=== PATIENT | female | born 1980 | race Caucasian/White ===

== ENCOUNTER 2020-10-17 16:15 | Outpatient (CLI) | payer OTHER, SELFPAY ==
--- NOTE | ~2020-10-17 | MM_ITS ---
EXAMINATION: MM screening dany BI w zion HISTORY: Screening TECHNIQUE: Craniocaudal and mediolateral oblique 3-D tomosynthesis images were obtained and synthetic 2-D images were generated. CAD analysis was submitted and interpreted. COMPARISON: No prior mammogram is available for comparison at this institution. BREAST PARENCHYMAL COMPOSITION: The breasts are extremely dense, which lowers the sensitivity of mamm ography. FINDINGS: There are bilateral asymmetries in the upper outer quadrant of the breasts. No suspicious a rchitectural distortion or calcifications. IMPRESSION: 1. Bilateral breast asymmetries. 2. Additional mammographic views and possible breast ultrasound are recommended. BI-RADS Category 0: Incomplete: Needs additional imaging evaluation. Reviewed, dictated and finalized at location A. RING MACHINE OPERATOR IMPRESSION: 1. Bilateral breast asymmetries. 2. Additional mammographic views and possible breast ultrasound are recommended . BI-RADS Category 0: Incomplete: Needs additional imaging evaluation.
== END 2020-10-17 16:16 | disposition home or self-care (01) ==
LOC: ANHIMG 16:19
PROVIDERS: PCP Family Medicine; Visit Provider Physician Assistant
DX: Z12.31 Encounter for screening mammogram for malignant neoplasm of breast (principal); R92.8 Other abnormal and inconclusive findings on diagnostic imaging of breast
CPT/HCPCS: 77063; 77067

== ENCOUNTER 2020-11-19 13:50 | Outpatient (CLI) | payer OTHER, SELFPAY ==
--- NOTE | ~2020-11-19 | MMUS_ITS ---
EXAMINATION: MM diagnostic mammo BI, US breast BI complete HISTORY: Follow-up breast asymmetries TECHNIQUE: Additional 3-D tomosynthesis images of the breasts were performed and synthetic 2-D images were generated. CAD analysis was submitted and interpreted. High resolution bilateral breast ultraso und was performed. COMPARISON: 10/17/2020 BREAST PARENCHYMAL COMPOSITION: The breasts are heterogenously dense, which may obscure small masses. FINDINGS: MAMMOGRAPHIC FINDINGS: There is no mammographic evidence for malignancy in the right breast. There is a 5.4 cm mass in the u pper outer quadrant of the left breast which is obscured by dense fibroglandular tissue. There are no suspicious calcifications or architectural distortion. Right breast ultrasound: Multiple cysts in both breasts. In the subareolar location of the right kathleen st there is a slightly lobulated hypoechoic oval mass without internal vascularity measuring 1.5 cm g reatest dimension. Left breast ultrasound: In the left breast there is a large subareolar cyst measuring 4.9 cm greatest dimension, likely corre sponding to the mammographic finding. At 9:00, 3 cm from the nipple, there is an oval hypoechoic mass measuring 6 mm without significant internal vascularity or posterior features. IMPRESSION: 1. Probable benign bilateral breast masses. 2. Follow-up six-month interval bilateral breast ultrasound recommended. BI-RADS category 3, probably benign findings. Reviewed, dictated and finalized at location A. OR STOCK PLAN ADMINISTRATOR IMPRESSION: 1. Probable benign bilateral breast masses. 2. Follow-up six-month interval bilateral breast ultrasound recommended. BI-RADS category 3, probably benign findings.
== END 2020-11-19 13:51 | disposition home or self-care (01) ==
PROVIDERS: PCP Family Medicine; Visit Provider Physician Assistant
DX: N63.21 Unspecified lump in the left breast, upper outer quadrant (principal); N60.02 Solitary cyst of left breast; N60.01 Solitary cyst of right breast
CPT/HCPCS: 76641; 77066

== ENCOUNTER 2021-02-23 18:57 | Emergency (ER) | payer OTHER, SELFPAY ==
--- NOTE | ~2021-02-23 | CT_ITS ---
EXAMINATION: CT abdomen pelvis w con DATE: 02/23/2021 21:05 INDICATION: Right-sided abdominal pain TECHNIQUE: Computed tomography (CT) of the abdomen and pelvis was performed with 100 cc Omnipaque 350 . intravenous contrast. Automated exposure control and iterative reconstruction technique were employ ed. Exam dose: 293.32 mGy-cm total exam DLP. COMPARISON: None. FINDINGS: Lung bases are clear of infiltrate or consolidation. Normal heart size. No pericardial or p leural effusion. Very small sliding hiatal hernia. There are 4 large faceted gallstones measuring up to approximately 2 cm maximal dimension. No gallbla dder wall thickening or pericholecystic fluid or fat stranding. No bile duct or pancreatic duct dilat ation. Approximately 1.5 cm hepatic dome cyst. The liver is otherwise unremarkable. Normal splenic size. No pancreatic mass lesion or calcification. Normal morphology of the adrenal glands. No renal mass lesion. No urinary tract calculus or hydroureteronephrosis. Normal caliber of the abdominal aorta. No intraperitoneal or retroperitoneal or pelvic mass lesion or adenopathy or ascites. Status post hysterectomy. The urinary bladder is evacuated. Normal appendix. No bowel obstruction, bowel wall thickening, pneumatosis or intraperitoneal free air . Included skeletal structures are unremarkable. IMPRESSION: Cholelithiasis 1.5 cm hepatic cyst Normal appendix Reviewed, dictated and finalized at Location A. Reviewed, dictated and finalized at location A.
[2021-02-23 19:11] VITALS: PULSE 65; RESP 18; TEMP 36.4; O2SAT 100
[2021-02-23] MEDS: ONDANSETRON INJ 4 MG/2 ML VIAL IV PUSH (19:43)
[2021-02-23] MEDS: SODIUM CHLORIDE 0.9% IV 1,000 ML 999 ML IV CONT (19:43)
[2021-02-23] MEDS: MORPHINE SULFATE (*CRX) 4 MG/ML INJ IV PUSH (19:43)
[2021-02-23 20:00] LABS: Basophils Percent Auto 0.5 % (0.2-1.2); Eosinophils Absolute Auto 0.3 K/mm3 (0-0.3); Eosinophils Percent Auto 3.8 % (0-4.4); Hematocrit 41.3 % (37.0-47.0); Hemoglobin 13.6 g/dL (12.0-15.0); Immature Granulocyte Absolute 0.01 K/mm3 (0.00-0.031); Immature Granulocyte Percent A 0.2 % (0-0.5); Lymphocytes Absolute Auto 2.06 K/mm3 (0.9-3.2); Lymphocytes Percent Auto 31.2 % (18.3-44.2); Mean Corpuscular HGB Conc 32.9 g/dl (32-36); Mean Corpuscular Hemoglobin 29.8 pg (26-34); Mean Corpuscular Volume 90.4 fl (80-100); Mean Platelet Volume 9.9 fl (7.4-10.4); Monocytes Absolute Auto 0.5 K/mm3 (0.1-0.6); Monocytes Percent Auto 7.7 % (2.6-8.5); Neutrophils Absolute Auto 3.8 K/mm3 (1.3-6.7); Neutrophils Percent Auto 56.6 % (45.5-73.1); Platelet Count Result 214 k/mm3 (150-375); Red Blood Count 4.57 M/mm3 (4.2-5.4); Red Cell Distribution Width 12.6 % (11.5-14.5); White Blood Count 6.6 K/mm3 (4.5-10.0)
[2021-02-23 20:17] LABS: Alanine Aminotransferase 13 U/L (4-35); Albumin Level 4.1 g/dL (3.5-5.1); Alkaline Phosphatase 70 U/L (38-126); Anion Gap 5 mmol/L (8-16); Aspartate Amino Transferase 23 U/L (14-36); Bilirubin,Total 0.1 mg/dL (0.2-1.3); Blood Urea Nitrogen 13 mg/dL (7-17); Calcium 9.8 mg/dL (8.4-10.2); Carbon Dioxide 26 mmol/L (22-30); Chloride 107 mmol/L (98-107); Estimated CRCL calculation 67 ml/min; Estimated Glomerular Filt Rate > 60; Glucose 93 mg/dL (65-105); Lipase 59 U/L (23-300); Sodium 138 mmol/L (137-145)
[2021-02-23 21:20] LABS: Add Urine Microscopic? YES; Appearance Urine Clear (Clear); Bilirubin Urine Negative (Negative); Blood Urine Negative (Negative); Color Urine Straw (Yellow); Glucose Urine UA Negative (Negative); Ketones Urine Trace mg/dL (Negative); Leukocyte Esterase Ur Negative LEU/UL (Negative); Mucus Urine Rare /lpf; Nitrate Urine Negative (Negative); Protein Urine Negative (Negative); RBC Urine 0-2 /hpf (0-2); Squamous Epithelial Cell Urine Few /hpf (Few); Urobilinogen Urine Negative mg/dL (<2.0); WBC Urine 0-3 /hpf
--- NOTE | 2021-02-23 21:54 | ED.GENADULT ---
HPI - General Adult General Chief complaint: Abdominal Pain Stated complaint: abd pain Time Seen by Provider: 02/23/21 19:21 History of Present Illness HPI narrative: Patient is a 41-year-old female who presents the emergency department with chief complaint of right-sided abdominal pain. Patient reports that she has been having pain in the right side of her abdomen. The patient states that she did some heavy exercise and is noticed that around the umbilicus in the right lower quadrant she has been having pain. The patient states is worse with movement reports that there are certain times that it is just aching and other times it becomes a sharp stabbing pain. Patient states that the pain does localize more to the suprapubic and right lower quadrant. Patient reports that is not improved by anything. Related Data Allergies Allergy/AdvReac Type Severity Reaction Status Date / Time doxycycline Allergy Unknown Unknown Verified 11/12/20 10:08 Sulfa (Sulfonamide Allergy Unknown Skin Verified 11/12/20 10:08 Antibiotics) Reaction Review of Systems Review of Systems: Narrative: A 10 system review of systems was completed on the patient and is negative except for what is stated in the HPI. Nursing and ancillary documentation was reviewed. [facility] Family History Family History Father Diabetes mellitus Family history of cardiovascular disease Grandparent Hypertension Other Cerebrovascular accident Social History Social History Smoking status: Never smoker Alcohol intake: current Drinks per week: 5 Gender identity (if verbalized by the patient): Female Exam Narrative: Exam Narrative: GENERAL: Well-appearing, well-nourished, and in no acute distress. HEAD: Normocephalic, atraumatic. EYES: PERRLA and EOMI. ENT: Nares clear, no rhinorrhea or epistaxis. Mucous membranes moist. NECK: Supple. CHEST: Clear to auscultation. No respiratory distress. HEART: Regular rate and rhythm. No murmur heard. Normal peripheral pulses. ABDOMEN: Soft, tender to palpation in the suprapubic and right lower quadrant region., nondistended, normal active bowel sounds. EXTREMITIES: Normal range of motion. No edema. SKIN: Warm, dry, no rash. NEURO: No focal deficits. Alert and oriented x3. PSYCH: Normal mood and affect. Course Course Emergency Course: CT scan showed evidence of cholelithiasis without evidence of cholecystitis. Laboratory studies showed no evidence of elevation of the liver enzymes. Patient has a normal white blood cell count Vital Signs Vital signs: Vital Signs Temperature 36.4 C 02/23/21 19:11 Pulse Rate 65 02/23/21 19:11 Respiratory Rate 18 02/23/21 19:11 Pulse Oximetry 100 02/23/21 19:11 Temperature 36.4 C 02/23/21 19:11 Pulse Rate 65 02/23/21 19:11 Respiratory Rate 18 02/23/21 19:11 Pulse Oximetry 100 02/23/21 19:11 Medical Decision Making Vital Signs Vital Signs: Vital Signs Temperature 36.4 C 02/23/21 19:11 Pulse Rate 65 02/23/21 19:11 Respiratory Rate 18 02/23/21 19:11 Pulse Oximetry 100 02/23/21 19:11 Temperature 36.4 C 02/23/21 19:11 Pulse Rate 65 02/23/21 19:11 Respiratory Rate 18 02/23/21 19:11 Pulse Oximetry 100 02/23/21 19:11 Lab Data Result diagrams: 02/23/21 19:54 02/23/21 19:54 Labs: Lab Results 02/23/21 02/23/21 02/23/21 Range/Units 19:54 19:54 21:10 WBC 6.6 (4.5-10.0) K/mm3 RBC 4.57 (4.2-5.4) M/mm3 Hgb 13.6 (12.0-15.0) g/dL Hct 41.3 (37.0-47.0) % MCV 90.4 (80-100) fl MCH 29.8 (26-34) pg MCHC 32.9 (32-36) g/dl RDW 12.6 (11.5-14.5) % Plt Count 214 (150-375) k/mm3 MPV 9.9 (7.4-10.4) fl Immature Gran % (Auto) 0.2 (0-0.5) % Neut % (Auto) 56.6 (45.5-73.1) % Lymph % (Auto) 31.2 (18.3-44.2) % [place] % (Au
[2021-02-23 22:50] VITALS: BP 121/73; PULSE 74; RESP 16; TEMP 36.7; O2SAT 100
== END 2021-02-23 22:11 | disposition home or self-care (01) ==
LOC: ANHED 19:56
PROVIDERS: Emergency Provider Emergency Medicine; PCP Family Medicine
DX: K80.20 Calculus of gallbladder without cholecystitis without obstruction (principal); R10.84 Generalized abdominal pain; K76.89 Other specified diseases of liver
CPT/HCPCS: 36415; 74177; 80053; 81001; 83690; 85025; 96361; 96374; 96375; 99284; J2270; J2405; J7030; Q9967

== ENCOUNTER 2021-06-05 11:13 | Outpatient (CLI) | payer OTHER, SELFPAY ==
--- NOTE | ~2021-06-05 | US_ITS ---
US breast BI complete DATE: 06/05/2021 11:54 INDICATION: Six-month follow-up of probable benign bilateral breast masses TECHNIQUE: High-resolution ultrasound imaging and color flow imaging of both complete breasts COMPARISON: 11/19/2020 bilateral diagnostic mammography and bilateral complete breast ultrasound exami nation FINDINGS: There is heterogeneous dense stroma of the breasts bilaterally with multiple bilateral scat tered breast cysts and circumscribed hypoechoic lesions. No suspicious interval vascularity or shadow ing is noted in association with any of these. The largest cyst is situated on the left L1-2 o'clock, measuring approximately 2.5 x 4.9 cm maximal dimension. IMPRESSION: BI-RADS Category 2: Benign findings Recommendation: Routine annual mammographic screening Reviewed, dictated and finalized at Location A. Reviewed, dictated and finalized at location A.
== END 2021-06-05 11:14 | disposition home or self-care (01) ==
LOC: ANHIMG 11:14
PROVIDERS: PCP Family Medicine; Visit Provider Physician Assistant
DX: R92.8 Other abnormal and inconclusive findings on diagnostic imaging of breast (principal); N60.02 Solitary cyst of left breast
CPT/HCPCS: 76641

== ENCOUNTER 2021-07-01 10:30 | Outpatient (CLI) | payer OTHER, SELFPAY ==
[2021-07-01 11:13] LABS: Alanine Aminotransferase 15 U/L (4-35); Albumin Level 4.1 g/dL (3.5-5.1); Alkaline Phosphatase 62 U/L (38-126); Amylase 83 U/L (30-110); Aspartate Amino Transferase 24 U/L (14-36); Bilirubin,Total 0.4 mg/dL (0.2-1.3); Lipase 65 U/L (23-300)
== END 2021-07-01 10:31 | disposition home or self-care (01) ==
LOC: ANHSURGERY 10:31
PROVIDERS: PCP Family Medicine; Visit Provider Surgery
DX: K80.20 Calculus of gallbladder without cholecystitis without obstruction (principal); Z01.818 Encounter for other preprocedural examination
CPT/HCPCS: 36415; 80076; 82150; 83690

== ENCOUNTER 2021-07-02 00:31 | Day surgery (SDC) | payer OTHER, SELFPAY ==
[2021-06-27 17:14] VITALS: BMI 26.6
--- NOTE | 2021-07-01 12:42 | WPDANESEPPF ---
Anes - Initial Pre Proc Eval Procedure: Operation Date: 07/02/21 12:00 Proposed Procedures p Laparoscopic Cholecystectomy with Possible Intraoperative Cholangiogram, with Possible Open - Yong Ashton MD Date/Time: 07/01/21 12:42 Surgeon: Yong Ashton MD Pre Op Diagnosis: chronic cholecystitis with cholelithiasis Patient Data Age: 41 Gender: F Height: 1.55 m Weight: 64 kg Allergies Allergy/AdvReac Type Severity Reaction Status Date / Time Sulfa (Sulfonamide Allergy Unknown Skin Verified 05/09/21 10:13 Antibiotics) Reaction Home Medications Medication Instructions Recorded Confirmed Type topiramate 25 mg tablet 25 mg PO DAILY #90 tablet 07/24/20 06/27/21 Rx phentermine 37.5 mg tablet 18.75 mg PO DAILY #15 tablet 04/26/21 06/27/21 Rx Patient hx anesthesia problems: none Family hx anesthesia problems: none [facility] Past Medical History Medical History Depression Esophageal reflux Overweight (BMI 25.0-29.9) Surgical History Surgical History H/O: hysterectomy Family History Family History Father Diabetes mellitus Family history of cardiovascular disease Grandparent Hypertension Other Cerebrovascular accident Social History Social History Smoking status: Never smoker Alcohol intake: current Drinks per week: 5 Substance use: never Living arrangements: with family Additional occupation/education comments: Book keeping Gender identity (if verbalized by the patient): Female Spiritual care concerns: No Anes - Eval Final PreProcedure Day of Procedure 07/01/21 12:42 Patient weight: overweight Heart: regular rate and rhythm Lungs: clear to auscultation and normal air movement Airway: Mallampati scale class II Neurological: alert and oriented Last oral intake: >/= 8 hours ASA classification: II Emergent: no Anesthetic plan: proceed Anesthesia type and monitoring: general ETT Informed Consent: The patient's anesthetic plan and its attendant risks and benefits were discussed with the patient/family/POA. Questions were solicited and answers provided to the satisfaction of the patient/family/POA.
[2021-07-02] VITALS (12 sets, daily range): BP systolic 90–109; BP diastolic 49–79; PULSE 42–70; RESP 12–18; TEMP 36.5–36.8; O2SAT 95–100
--- NOTE | 2021-07-02 09:57 | PM.HPGS ---
History of Present Illness History of Present Illness Consent: Risks, benefits, and alternatives have been discussed and questions answered. Patient agrees to proceed with procedure. Chief complaint: chronic cholecystitis with cholelithiasis Narrative: Betsy Duong is a 41 year old female that recently presented to the office at the request of Lars THOMSON for an evaluation of RUQ pain. Patient reports she has been having RUQ pain, heartburn and abdominal bloating for about 2 months intermittently. Patient reports that she has taken heartburn medication that helps relieve her symptoms. Patient went to [facility] ER on 02/23/[address] scan of the abdomen and pelvis with contrast showed cholelithiasis, a 1.5 cm hepatic cyst, and normal appendix. She report that she eats a gluten free diet because she has found that breads bother her. With this she does not eat a lot of fried food. She reports that over the last two months she has found the more she eats at one time she will have abdominal pain. She reports that she finds if she eats multiple small meals throughout the day she is less likely to have pain. She notes that even a salad can cause the pain if it is large. She reports that she does take OTC gas and heartburn medications daily. Other surgical history includes a hysterectomy in 2006 (both ovaries still in place). Patient reports she has had the COVID 19 vaccine with the second one being the first week in April 2021 Review of Systems Constitutional: Constitutional: Reports no additional constitutional complaints, Reports fatigue and Denies malaise Eyes: Eyes: Denies change in vision and Denies loss of vision ENT: Reports Normal hearing present, Denies change in voice, Denies dizziness, Denies hoarseness and Denies sore throat Cardiovascular: Cardiovascular: Denies chest pain, Denies leg edema and Denies dyspnea Respiratory: Respiratory: Denies cough, Denies dyspnea and Denies wheezing Gastrointestinal: Gastrointestinal: Denies hematochezia, Denies change in bowel habits and Denies heartburn Genitourinary: Genitourinary: Denies urinary frequency and Denies urinary incontinence Neurologic: Reports Normal hearing present, Denies confusion, Denies dizziness, Denies loss of vision, Denies memory loss and Denies seizure-like activity Psychiatric: Psychiatric: Denies confusion, Denies depression and Denies memory loss Endocrine: Endocrine: Denies cold intolerance and Reports fatigue Hematologic/Lymphatic: Hematologic/Lymphatic: Denies easy bleeding and Denies easy bruising Allergic/Immunologic: Allergic/Immunologic: Denies wheezing PMFSH Past Medical History Medical History Depression Esophageal reflux Overweight (BMI 25.0-29.9) Surgical History Surgical History H/O: hysterectomy Family History Family History Father Diabetes mellitus Family history of cardiovascular disease Grandparent Hypertension Other Cerebrovascular accident Social History Social History Smoking status: Never smoker Alcohol intake: current Drinks per week: 5 Substance use: never Living arrangements: with family Additional occupation/education comments: Book keeping Gender identity (if verbalized by the patient): Female Spiritual care concerns: No Meds Home Medications and Allergies Home Medications Medication Instructions Recorded Confirmed Type topiramate 25 mg tablet 25 mg PO DAILY #90 tablet 07/24/20 07/02/21 Rx phentermine 37.5 mg tablet 18.75 mg PO DAILY #15 tablet 04/26/21 07/02/21 Rx Allergies Allergy/AdvReac Type Severity Reaction Status Date / Time Sulfa (Sulfonamide Allergy Unknown Skin Verified 07/02/21 11:51 Antibiotics) Reaction Exam Const: Gener
[2021-07-02] MEDS: ACETAMINOPHEN 500 MG TABLET 1000 MG PO (10:46)
[2021-07-02] MEDS: KETOROLAC 15 MG/ML VIAL (*BKC) IV PUSH (10:46)
[2021-07-02] MEDS: LACTATED RINGERS 1,000 ML 30 ML IV CONT ×2 (10:47→14:20)
--- NOTE | 2021-07-02 12:23 | WPDHPUPDATE1 ---
History and Physical Update Update Date/Time: 07/02/21 12:23 History and Physical has been reviewed, including an updated exam of the patient. There are NO changes in the patient's condition. Risks, benefits, and alternatives have been discussed and questions answered. Patient agrees to proceed with procedure.
[2021-07-02] MEDS: ceFAZolin 2 GM/D5W 50 ML 2 GM/50 ML BAG IVPB (12:46)
[2021-07-02] MEDS: BUPIVACAINE/EPINEPHRINE 0.5% 30 ML VIAL INFILTRATE (13:29)
--- NOTE | 2021-07-02 14:35 | W.PM.PROC2 ---
Procedure Note - Detailed Date of Procedure 07/04/21 Pre-op Diagnosis chronic cholecystitis with cholelithiasis Post-op Diagnosis same Procedure Performed Laproscopic Cholecystectomy Surgeon Yong Ashton MD [employer] Gwendolyn [email or web address] project administrative assistant Anesthesia general Description of Procedure Patient was seen preoperatively in the holding area and risks, benefits and alternatives confirmed. Patient was taken to the operating room and general anesthesia was induced. A time out was then preformed with the surgery team confirming patient and site of surgery. The abdomen was prepped and draped in the usual sterile fashion. Incision was made just below the umbilicus with an 11 blade knife. I placed 2 stay sutures of O- Vicryl on either side of the mid-line fascia beneath the umbilicus and was then able to slide in the Bartholomew cannula through the fascial defect into the peritoneum. First under low flow and then under high flow the abdomen was insufflated with carbon dioxide never exceeding a pressure of 14. Three 5 mm trocars were then introduced under direct vision. The following trocars were introduced under direct vision: a 5 mm in the epigastrium and two 5 mm trocars along the right costal margin laterally in the subcostal area. There were not any adhesions to the underside of the gallbladder. I then carefully used the L-shaped cautery and the [place] dissector to dissect out the triangle of [place]. I then was able to dissect out both the cystic duct and cystic artery and identify a window of safety. The gall bladder was grasped and the cystic duct and artery were dissected free and clipped with an 5 mm endo-clip production stage manager. The cystic duct and artery were clipped with use of 2 clips on the patient's side 1 on the gallbladder side utilizing a 5 mm endoclip-production stage manager. The cystic duct was then transected. The cystic artery was also transected at this point. The gall bladder was removed using electrocautery and then removed from the abdomen using a large 10 mm grasper via the umbilical incision. In order to get the large stones and the gallbladder out of the abdomen, after half the gallbladder was out of the abdomen, we opened the gallbladder and reached inside to remove and crush a couple of the stones beneath the fascia. This allowed us to pull the gallbladder and the stones up in out of the abdomen. A portions of the stones removed from the gallbladder were sent with the specimen in the same container. There was some bile spillage on the outside of the abdomen but none spilled within the abdomen. Both my executive assistant and I changed outer gloves after gallbladder was passed off the field and we came back to do closure. The trocars were removed visualizing hemostasis and the remaining gas evacuated. The large trocar site at the umbilicus was closed with use of a figure of 8 O-Vicryl suture. The 2 stay sutures mentioned above on either side of the fascia were removed since they became stained with the bile as we removed the gallbladder. Therefore, a separate single simple suture of 0 Vicryl was also placed in the midline fascia to try to give a good secure closure and prevent postop incisional umbilical hernia. Further local anesthetic was placed into each incision for postop pain control. The skin incisions were closed with subcuticular suture of 4-0 Monocryl. Surgical glue then was applied to all the incisions. Patient tolerated the procedure well was taken to the recovery room in good condition. Implants none Packing No Pathology yes (Gallbladder) Complications No immediate complications Condition stable Disposition PACU
[2021-07-02] MEDS: fentaNYL CITRATE INJ (*CRX) 100 MCG/2 ML VIAL 25 MCG IV PUSH ×6 (15:15→17:00)
[2021-07-02] MEDS: oxyCODONE HCL (*CRX) 5 MG TAB IR PO (17:17)
== END 2021-07-02 17:25 | disposition home or self-care (01) ==
PROVIDERS: PCP Family Medicine; Visit Provider Surgery
PROC: 0FT44ZZ Resection of Gallbladder, Percutaneous Endoscopic Approach (ICD-10-PCS; CPT 47562; principal; 2021-07-02 12:00)
DX: K80.10 Calculus of gallbladder with chronic cholecystitis without obstruction (principal); E66.3 Overweight; Z68.27 Body mass index [BMI] 27.0-27.9, adult; F32.9 Major depressive disorder, single episode, unspecified; Z79.899 Other long term (current) drug therapy; Z88.2 Allergy status to sulfonamides
CPT/HCPCS: 47562; 36415; 80076; 82150; 83690; 88304; A9270; J0690; J1100; J1170; J1885; J2250; J2405; J2704; J2710; J3010; J7120

== ENCOUNTER 2021-10-21 11:46 | Outpatient (CLI) | payer OTHER, SELFPAY ==
--- NOTE | ~2021-10-21 | MMUS_ITS ---
EXAMINATION: MM diagnostic dany BI w zion, US breast BI limited HISTORY: Pain of the upper outer right breast and painful cyst in the upper outer quadrant of the lef t breast. TECHNIQUE: Craniocaudal, mediolateral, and mediolateral oblique 3-D tomosynthesis images of the breas ts were performed and synthetic 2-D images were generated. CAD analysis was submitted and interpreted . High resolution limited bilateral breast ultrasound was performed. COMPARISON: 05/28/2021, 11/19/2020, 10/17/2020 BREAST PARENCHYMAL COMPOSITION: The breasts are heterogeneously dense, which may obscure small masses . FINDINGS: MAMMOGRAPHIC FINDINGS: Right breast: There are small obscured masses of the outer right breast without suspicious interval c hange since the comparison examination which have been previously characterized as cysts. No suspicio us mammographic correlate is identified for the patient's reported right breast pain. No suspicious c alcification or architectural distortion are identified. Left breast: There is a 5.2 cm cyst in the middle third of the outer breast in the area of the patien t's pain without significant change since the prior examination. Additional smaller cysts are identif ied, none of which demonstrates suspicious change. There is no suspicious calcification or architectu ral distortion. ULTRASOUND: Right breast: There is a possible 1.5 x 0.7 cm oval, circumscribed, parallel, isoechoic mass with pos terior acoustic enhancement and no internal vascularity at the 10:00 location 3 cm from the nipple in the area the patient's pain. On some images this has the appearance of a fat lobule. A 0.7 cm cyst i s also noted at the 10:00 location 1 cm from the nipple. Left breast: There is a 5.4 x 2.3 cm simple cyst at the 1:00 location 2 cm from the nipple correspond ing to the patient's left breast pain. IMPRESSION: 1. Small mass versus fat lobule of the right breast corresponding to the area of right breast pain wi th a benign appearance. Follow-up targeted ultrasound in six months is recommended. 2. Simple cyst of the left breast corresponding to the area of increasing pain. Could consider cyst a spiration for symptomatic relief. No suspicious left breast findings. BI-RADS category 3, probably benign findings. Reviewed, dictated and finalized at location A. K SERVICE PERSON IMPRESSION: 1. Small mass versus fat lobule of the right breast corresponding to the area o f right breast pain with a benign appearance. Follow-up targeted ultrasound in six months is recommended. 2. Simple cyst of the left breast corresponding to the area of increasing pain. Could consider cyst aspiration for symptomatic relief. No suspicious left kathleen st findings. BI-RADS category 3, probably benign findings.
== END 2021-10-21 11:47 | disposition home or self-care (01) ==
LOC: ANHIMG 11:47
PROVIDERS: PCP Family Medicine; Visit Provider Family Medicine
DX: N60.02 Solitary cyst of left breast (principal)
CPT/HCPCS: 76642; 77062; 77066; G0279

== ENCOUNTER 2022-04-30 11:02 | Outpatient (CLI) | payer OTHER, SELFPAY ==
--- NOTE | ~2022-04-30 | US_ITS ---
US breast BI limited DATE: 04/30/2022 11:38 INDICATION: Six-month follow-up of probable benign findings of both breasts TECHNIQUE: High-resolution ultrasound imaging targeted to right breast 10:00 3 cm from nipple and 10: 00 1 cm from nipple and left breast 1:00 2 cm from nipple, with comparison to 10/21/2021 bilateral Li mited breast ultrasound examination COMPARISON: 10/21/2021 bilateral Limited breast ultrasound and bilateral diagnostic mammogram FINDINGS: At right breast 10:00 area 3 cm from the nipple there is a parallel circumscribed mildly lo bular relatively homogeneous solid lesion with through transmission posterior enhancement, measuring approximately 7 x 16 mm, stable since 10/21/2021. The sonographic features are most consistent with b enign process, possibly fibroadenoma. Right breast 10:00 1 cm from nipple: 5.8 x 3.3 mm sonolucency with through transmission, compatible w ith simple cyst Left breast 1:00 2 cm from nipple: Parallel circumscribed completely sonolucent lesion measuring appr oximately 3 x 2 x 4.5 cm, with through transmission posterior enhancement, compatible with simple cys t. IMPRESSION: BI-RADS Category 2: Benign EXAMINATION: Routine mammographic screening Reviewed, dictated and finalized at Location A. Reviewed, dictated and finalized at location A.
== END 2022-04-30 11:03 | disposition home or self-care (01) ==
PROVIDERS: PCP Family Medicine; Visit Provider Obstetrics & Gynecology
DX: N63.11 Unspecified lump in the right breast, upper outer quadrant (principal); N63.21 Unspecified lump in the left breast, upper outer quadrant
CPT/HCPCS: 76642

== ENCOUNTER → 2023-02-27 10:35 | Outpatient (CLI) | payer OTHER, SELFPAY ==
--- NOTE | ~2023-02-27 | XR_ITS ---
XR hip LT min 2V DATE: 02/27/2023 11:02 INDICATION: Left hip pain TECHNIQUE: AP and lateral views COMPARISON: None FINDINGS: No fracture or dislocation of the left hip or avascular necrosis or bone destruction is det ected. Left hip joint space is well preserved. The pubic symphysis and sacral iliac joints appear int act. IMPRESSION: Negative Reviewed, dictated and finalized at location B. IMPRESSION: Negative
== END ==
PROVIDERS: PCP Physician Assistant; Visit Provider Chiropractor
DX: M25.552 Pain in left hip (principal)
CPT/HCPCS: 73502

== ENCOUNTER 2023-03-03 16:22 | Outpatient (CLI) | payer OTHER, SELFPAY ==
--- NOTE | ~2023-03-03 | MM_ITS ---
EXAMINATION: MM screening dany BI w zion HISTORY: Screening mammogram TECHNIQUE: Craniocaudal and mediolateral oblique 3-D tomosynthesis images were obtained and synthetic 2-D images were generated. CAD analysis was submitted and interpreted. COMPARISON: 04/30/2022 bilateral Limited breast ultrasound examination 10/21/2021 diagnostic bilateral mammogram and bilateral Limited breast ultrasound examination 06/05/2021 bilateral complete breast ultrasound examination 11/19/2020 bilateral diagnostic mammogram and bilateral complete breast ultrasound examination 10/17/2020 bilateral screening mammogram BREAST PARENCHYMAL COMPOSITION: The breasts are heterogeneously dense, which may obscure small masses . FINDINGS: Scattered bilateral benign microcalcifications. There is no evidence of suspicious mass, ca lcification, or architectural distortion to suggest malignancy in either breast. There has been no kendall spicious interval change. IMPRESSION: 1. No mammographic evidence of malignancy. 2. Recommend routine screening mammography in one year. BI-RADS Category 2: Benign finding(s). Reviewed, dictated and finalized at location A.
== END 2023-03-03 16:23 | disposition home or self-care (01) ==
PROVIDERS: PCP Physician Assistant; Visit Provider Obstetrics & Gynecology
DX: Z12.31 Encounter for screening mammogram for malignant neoplasm of breast (principal)
CPT/HCPCS: 77063; 77067

== ENCOUNTER 2023-03-05 14:11 | Outpatient (CLI) | payer OTHER, SELFPAY ==
[2023-03-05 15:13] LABS: Thyroid Stimulating Hormone 0.838 uIU/mL (0.465-4.680)
[2023-03-11 03:54] LABS: FSH 15.8 mIU/mL (***)
[2023-03-14 21:42] LABS: Estradiol, Ultrasensitive 82 pg/mL
== END 2023-03-05 14:12 | disposition home or self-care (01) ==
LOC: ANHLAB 14:13
PROVIDERS: PCP Physician Assistant; Visit Provider Obstetrics & Gynecology
DX: R53.83 Other fatigue (principal)
CPT/HCPCS: 36415; 82670; 83001; 84443

== ENCOUNTER 2024-02-03 05:47 | Day surgery (SDC) | payer OTHER, SELFPAY ==
[2023-12-15 11:59] VITALS: BMI 28.0
[2024-02-03 06:16] VITALS: BP 116/78; PULSE 61; RESP 16; TEMP 37.2; O2SAT 100
--- NOTE | 2024-02-03 07:04 | PM.HPGS ---
History of Present Illness History of Present Illness Consent: Risks, benefits, and alternatives have been discussed and questions answered. Patient agrees to proceed with procedure. Chief complaint: Screening Neoplasm of Colon Narrative: Betsy Duong is a 43 year old female presents for screening colonoscopy. Diet and bowel movements are normal. She does have abdominal bloating. She notices a regular bowel movements. She has had no bleeding. Family history is noncontributory. Review of Systems Review of Systems: Review of systems is noncontributory. [facility] Past Medical History Medical History Depression Esophageal reflux (Unknown) Fatigue Overweight (BMI 25.0-29.9) (Unknown) Screening mammogram, encounter for Surgical History Surgical History H/O: hysterectomy 09/12/11 RA TLH for enlarged uterus History of hysteroscopy 07/17/11 D&C for dysmenorrhea History of laparoscopic cholecystectomy 07/04/21 Family History Family History Father Diabetes mellitus Family history of cardiovascular disease Grandparent Hypertension Cerebrovascular accident maternal grandmother Mother Hypertension Social History Social History Smoking status: Never smoker Second hand tobacco smoke exposure: No Alcohol intake: current Drinks per week: 4 Substance use: never Substance use type: does not use Lack of Transportation: No Lack of Food: Never True Current Housing: I Have Housing Concerned About Future Housing: No Difficulty Paying Gas/Electric Bills: No Difficulty Paying for Meds: No Currently Unemployed: No Education: Decline to Answer Difficulty w/ Childcare or Family Care: No Living arrangements: with family Additional living arrangements comments: 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 Gender identity (if verbalized by the patient): Female Sexual Orientation (if Verbalized by the Patient): Straight or Heterosexual Spiritual care concerns: No Meds Home Medications and Allergies Home Medications Medication Instructions Recorded Confirmed Type topiramate 25 mg tablet See Rx Instructions .Route 12/01/23 02/03/24 Rx .COMPLEX #90 tabs phentermine 37.5 mg tablet 18.75 mg PO DAILY #30 tabs 12/08/23 02/03/24 Rx Allergies Allergy/AdvReac Type Severity Reaction Status Date / Time Sulfa (Sulfonamide Allergy Unknown Skin Verified 02/03/24 06:15 Antibiotics) Reaction Vital Signs Vital Signs - 24 hr 02/03/24 06:16 Temperature 99 F Pulse Rate 61 Respiratory Rate 16 Blood Pressure 116/78 Pulse Oximetry 100 Oxygen Delivery Room Air Exam Narrative: Physical exam reveals patient to be alert. Vital signs stable. HEENT exam is unremarkable. Patient is anicteric. Lungs are clear to auscultation and percussion. Heart is without murmur or extra sounds. Abdomen bowel sounds are present soft nontender with no organomegaly. Digital and external rectal exam is normal. Assessment and Plan Assessment and plan (1) Screening for colon cancer: Code(s): Z12.11 - Encounter for screening for malignant neoplasm of colon Status: Acute Assessment and Plan: Presents today for screening colonoscopy. Further recommendations may be given after endoscopy.
--- NOTE | 2024-02-03 07:10 | WPDANESEPPF ---
Anes - Initial Pre Proc Eval Procedure: Operation Date: 02/03/24 07:30 Proposed Procedures p Screening Colonoscopy - Ru Haney MD Date/Time: 02/03/24 07:10 Surgeon: Ru Haney MD Pre Op Diagnosis: Screening Neoplasm of Colon Patient Data Age: 43 Gender: F Height: 1.56 m Weight: 68.1 kg Last Vital Signs Temp 37.2 C 02/03/24 06:16 Pulse 61 02/03/24 06:16 Resp 16 02/03/24 06:16 BP 116/78 02/03/24 06:16 Pulse Ox 100 02/03/24 06:16 O2 Del Method Room Air 02/03/24 06:16 Allergies Allergy/AdvReac Type Severity Reaction Status Date / Time Sulfa (Sulfonamide Allergy Unknown Skin Verified 02/03/24 06:15 Antibiotics) Reaction Home Medications Medication Instructions Recorded Confirmed Type topiramate 25 mg tablet See Rx Instructions .Route 12/01/23 02/03/24 Rx .COMPLEX #90 tabs phentermine 37.5 mg tablet 18.75 mg PO DAILY #30 tabs 12/08/23 02/03/24 Rx Patient hx anesthesia problems: other (slow to awaken) Family hx anesthesia problems: none Results Review: All pre-operative results and documents have been reviewed as part of the pre-operative evaluation. [facility] Past Medical History Medical History Depression Esophageal reflux (Unknown) Fatigue Overweight (BMI 25.0-29.9) (Unknown) Screening mammogram, encounter for Surgical History Surgical History H/O: hysterectomy 09/12/11 RA TL for enlarged uterus History of hysteroscopy 07/17/11 D&C for dysmenorrhea History of laparoscopic cholecystectomy 07/04/21 Family History Family History Father Diabetes mellitus Family history of cardiovascular disease Grandparent Hypertension Cerebrovascular accident maternal grandmother Mother Hypertension Social History Social History Smoking status: Never smoker Second hand tobacco smoke exposure: No Alcohol intake: current Drinks per week: 4 Substance use: never Substance use type: does not use Lack of Transportation: No Lack of Food: Never True Current Housing: I Have Housing Concerned About Future Housing: No Difficulty Paying Gas/Electric Bills: No Difficulty Paying for Meds: No Currently Unemployed: No Education: Decline to Answer Difficulty w/ Childcare or Family Care: No Living arrangements: with family Additional living arrangements comments: 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 Gender identity (if verbalized by the patient): Female Sexual Orientation (if Verbalized by the Patient): Straight or Heterosexual Spiritual care concerns: No Anes - Eval Final PreProcedure Day of Procedure 02/03/24 07:10 Patient weight: normal and overweight Heart: regular rate and rhythm Lungs: clear to auscultation Airway: Mallampati scale class II Neurological: alert and oriented Last oral intake: >/= 8 hours ASA classification: II Emergent: no Anesthetic plan: proceed Anesthesia type and monitoring: general GIVS and standard monitoring Results Review: All pre-operative results and documents have been reviewed as part of the pre-operative evaluation. Informed Consent: The patient's anesthetic plan and its attendant risks and benefits were discussed with the patient/family/POA. Questions were solicited and answers provided to the satisfaction of the patient/family/POA.
[2024-02-03] MEDS: LACTATED RINGERS 1,000 ML 150 ML IV CONT (07:13)
[2024-02-03 07:43] VITALS: BP 104/71; PULSE 78; RESP 16; O2SAT 100
[2024-02-03 07:53] VITALS: BP 99/71; PULSE 60; RESP 16; O2SAT 100
--- NOTE | 2024-02-03 07:56 | WPDANESPN ---
Anes - Prog Note Post-Op Date/Time: 02/03/24 07:56 Cardiovascular status: normal Respiratory status: normal Airway patency: baseline Mental status: baseline Post-Op hydration status: normal Vital Signs: Last Vital Signs Temp 37.2 C 02/03/24 06:16 Pulse 78 02/03/24 07:43 Resp 16 02/03/24 07:43 BP 104/71 02/03/24 07:43 Pulse Ox 100 02/03/24 07:43 O2 Del Method Room Air 02/03/24 07:43 Pain Score (VAS): 0 I/O: Intake & Output 02/02/24 02/02/24 02/03/24 15:59 23:59 07:59 Intake Total 200 Balance 200 Patient Feedback: Patient satisfied with anesthetic care.
[2024-02-03 08:03] VITALS: BP 106/60; PULSE 62; RESP 16; O2SAT 98
== END 2024-02-03 08:16 | disposition home or self-care (01) ==
PROVIDERS: PCP Physician Assistant; Visit Provider Internal Medicine Gastroenterology
PROC: 0DJD8ZZ Inspection of Lower Intestinal Tract, Via Natural or Artificial Opening Endoscopic (ICD-10-PCS; CPT 45378; principal; 2024-02-03 07:30)
DX: Z12.11 Encounter for screening for malignant neoplasm of colon (principal); K64.8 Other hemorrhoids
CPT/HCPCS: 45378

== ENCOUNTER 2024-05-16 08:50 | Outpatient (CLI) | payer OTHER, SELFPAY ==
--- NOTE | ~2024-05-16 | MM_ITS ---
EXAMINATION: MM screening dany BI w zion HISTORY: Screening TECHNIQUE: Craniocaudal and mediolateral oblique 3-D tomosynthesis images were obtained and synthetic 2-D images were generated. CAD analysis was submitted and interpreted. COMPARISON: Comparison to multiple prior studies sequentially, with oldest reviewed study dated 07/2020. BREAST PARENCHYMAL COMPOSITION: Dense: The breasts are heterogeneously dense, which may obscure small masses FINDINGS: There is a developing nodular asymmetries of the left breast. The right breast is stable wi thout evidence for malignancy. IMPRESSION: 1. Developing right breast asymmetries. 2. Additional mammographic views and possible breast ultrasound are recommended. BI-RADS Category 0: Incomplete: Needs additional imaging evaluation. Reviewed, dictated and finalized at location B. IMPRESSION: 1. Developing right breast asymmetries. 2. Additional mammographic views and possible breast ultrasound are recommended . BI-RADS Category 0: Incomplete: Needs additional imaging evaluation.
== END 2024-05-16 08:51 | disposition home or self-care (01) ==
LOC: ANHIMG 08:51
PROVIDERS: PCP Physician Assistant; Visit Provider Obstetrics & Gynecology
DX: Z12.31 Encounter for screening mammogram for malignant neoplasm of breast (principal); N64.89 Other specified disorders of breast
CPT/HCPCS: 77063; 77067

== ENCOUNTER 2024-06-03 10:39 | Outpatient (CLI) | payer OTHER, SELFPAY ==
--- NOTE | ~2024-06-03 | MMUS_ITS ---
EXAMINATION: MM diagnostic dany LT w zion, US breast LT complete HISTORY: Follow-up left breast asymmetries TECHNIQUE: Additional 3-D tomosynthesis images of the left breast were performed and synthetic 2-D im ages were generated. CAD analysis was submitted and interpreted. High resolution complete left breast ultrasound was performed. COMPARISON: Comparison to multiple prior studies sequentially, with oldest reviewed study dated 07/2020. BREAST PARENCHYMAL COMPOSITION: Dense: The breasts are heterogeneously dense, which may obscure small masses FINDINGS: MAMMOGRAPHIC FINDINGS: Left breast asymmetry centrally in the left breast is persistent with spot compression views. No disc rete mass or architectural distortion. No suspicious calcifications. ULTRASOUND: Complete US of all 4 quadrants of the left breast and retroareolar region was reviewed. At 12:00, 4 c m from the nipple there is a 6 mm cyst. At 1:00, 2 cm from the nipple there is an oval 1.4 cm hypoech oic mass without significant posterior features or internal vascularity. There is parallel orientatio n. At 1:30, 5 cm from the nipple, there is a cyst. At 2:00, 5 cm from the nipple there is a 5 mm cyst . At 6:00, 4.5 cm from the nipple, there is a complicated cyst with internal echoes, possibly multipl e cysts. This measures 7 mm. IMPRESSION: 1. Oval hypoechoic left breast mass at 1:00, 2.4 cm from the nipple, measuring 1.4 cm. Ultrasound-alondra ded left breast biopsy recommended. 2. Probable benign complicated cyst of the left breast at 6:00, 4.5 cm from the nipple. Six-month fol low-up left breast ultrasound recommended. BI-RADS category 4, suspicious findings. Reviewed, dictated and finalized at location B. IMPRESSION: 1. Oval hypoechoic left breast mass at 1:00, 2.4 cm from the nipple, measuring 1.4 cm. Ultrasound-guided left breast biopsy recommended. 2. Probable benign complicated cyst of the left breast at 6:00, 4.5 cm from the nipple. Six-month follow-up left breast ultrasound recommended. BI-RADS category 4, suspicious findings.
== END 2024-06-03 10:40 | disposition home or self-care (01) ==
PROVIDERS: PCP Physician Assistant; Visit Provider Obstetrics & Gynecology
DX: R92.8 Other abnormal and inconclusive findings on diagnostic imaging of breast (principal); N64.89 Other specified disorders of breast
CPT/HCPCS: 76641; 77061; 77065; G0279